=== PATIENT | female | born 1975 | race Caucasian/White ===

== ENCOUNTER 2017-12-17 07:35 | Day surgery (SDC) | payer BC ==
[~2017-12-17 07:35] MED LIST: ACETAMINOPHEN 1,000 MG/100 ML BTL IV ONE; CLINDAMYCIN 600MG/50ML PREMIX 600 MG/50 ML BAG IVPB ONE
[2017-12-17] MEDS ORDERED: EPHEDRINE SULFATE 50 MG/ML ML IV ONE (07:36)
[2017-12-17] MEDS ORDERED: LIDOCAINE 2% MDV (20MG/ML) 20ML VIAL IV ONE (07:36)
[2017-12-17] MEDS ORDERED: SEVOFLURANE 250 ML INH ONE (07:36)
[2017-12-17] MEDS ORDERED: HYDROCODONE/APAP 5/325MG TABLET PO ONE (07:36)
[2017-12-17] MEDS ORDERED: PROPOFOL 10 MG/ML VIAL IV ONE (07:36)
--- NOTE | 2017-12-18 13:20 | Operative Note ---
DATE OF SURGERY: 12/17/2017 Surgeon: Blake Moss DO PREOPERATIVE DIAGNOSIS: Incarcerated femoral hernia. POSTOPERATIVE DIAGNOSIS: Incarcerated femoral hernia. OPERATION: Open femoral herniorrhaphy with mesh. Indication: The patient is a 43-year-old female who presented to the clinic with pain and bulging below her inguinal ligament. She had an incarcerated femoral hernia on exam. We did discuss repair. Risks, benefits, and alternatives were discussed. Risks include but are not limited to bleeding, infection, acute or chronic pain, recurrence. She understood this fully. Thereafter, consent was signed and questions answered. PROCEDURE: The patient was taken to the operating room and placed in a supine position. General anesthesia was administered per the department of anesthesia. The patient's left inguinal region was shaved of hair and prepped and draped in the usual fashion. A block was done medial to the ASIS as well as at the level of the pubic tubercle. A 3 cm incision was made just at the level of the inguinal ligament. This was carried down through the subcutaneous tissues until the hernia sac was encountered. This was dissected free from the surrounding tissue. This was then amputated and passed off the field through the femoral hernia. A small plug was placed. This was sutured to the pectineus muscle to the inguinal ligament. At this time, the wound was then closed with 3-0 and 4-0 Vicryl. She tolerated the procedure well. CC: Edgar Wilkerson MD [facility]ITALJayde
== END 2017-12-17 10:20 | disposition home or self-care (01) ==
LOC: SUR 07:35
PROVIDERS: ATTEND Surgery
DX: K41.30 Unilateral femoral hernia, with obstruction, without gangrene, not specified as recurrent (principal); I10 Essential (primary) hypertension; E78.00 Pure hypercholesterolemia, unspecified; E03.9 Hypothyroidism, unspecified; J44.9 Chronic obstructive pulmonary disease, unspecified; M32.9 Systemic lupus erythematosus, unspecified